=== PATIENT | male | born 1995 | race Hispanic/Latino ===

== ENCOUNTER 2022-08-06 11:58 | Emergency (ER) | payer SELFPAY ==
[~2022-08-06] VITALS: Ht 162.6 cm; Wt 58.0 kg
[2022-08-06] VITALS (10 sets, daily range): BP systolic 112–134; BP diastolic 77–96
[2022-08-06] MEDS ORDERED: LORTAB 5/3255 MG PO (13:52)
[2022-08-06] MEDS ORDERED: NAPROXEN500 MG PO (13:52)
[2022-08-06] MEDS ORDERED: KEFLEX500 MG PO (13:52)
== END 2022-08-06 14:17 | disposition home or self-care (01) | DRG 605 ==
LOC: ED 11:58
PROC: 0HQFXZZ Repair Right Hand Skin, External Approach (ICD-10-PCS; principal; 2022-08-06)
DX: S61.210A Laceration without foreign body of right index finger without damage to nail, initial encounter (principal); S62.630A Displaced fracture of distal phalanx of right index finger, initial encounter for closed fracture; W20.8XXA Other cause of strike by thrown, projected or falling object, initial encounter; Y93.H2 Activity, gardening and landscaping; Y92.007 Garden or yard of unspecified non-institutional (private) residence as the place of occurrence of the external cause